=== PATIENT | female | born 1960 ===

== ENCOUNTER 2017-12-16 17:41 | Emergency (ER) | payer OTHER ==
[~2017-12-16] VITALS: Ht 157.5 cm; Wt 57.6 kg
[2017-12-16 18:02] VITALS: BP 135/87
[2017-12-16] MEDS ORDERED: ibuprofen 200mg tablet PO ONE (20:30)
[2017-12-16] MEDS ORDERED: ibuprofen tablet 400 MG TABLET PO ONE (20:30)
[2017-12-16] MEDS ORDERED: HYDROcodone/acetaminophen 10/325mg tab PO ONE (20:30)
[2017-12-16] MEDS ORDERED: HYDR-565 PO (20:31)
== END 2017-12-16 20:41 | disposition home or self-care (01) ==
LOC: ER 17:42
DX: S50.01XA Contusion of right elbow, initial encounter (principal); S50.12XA Contusion of left forearm, initial encounter; Z79.899 Other long term (current) drug therapy; V86.69XA Passenger of other special all-terrain or other off-road motor vehicle injured in nontraffic accident, initial encounter; Y93.89 Activity, other specified; Y92.488 Other paved roadways as the place of occurrence of the external cause; Y99.8 Other external cause status
CPT/HCPCS: 73080; 73090; 99284